=== PATIENT | female | born 1955 | race Caucasian/White ===

== ENCOUNTER 2018-10-24 12:25 | Emergency (ER) | payer OTHER ==
[~2018-10-24] VITALS: Ht 167.6 cm; Wt 108.9 kg
[2018-10-24 12:40] VITALS: BP 149/85
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
[2018-10-24] MEDS ORDERED: KETOROLAC 60 MG/2 ML VIAL IM ONE (13:10)
--- NOTE | 2018-10-24 13:50 | NUR ---
Dr. Antony evaluating patient at bedside.
[2018-10-24 14:20] VITALS: BP 148/75
== END 2018-10-24 14:16 | disposition home or self-care (01) ==
LOC: MED 12:25
DX: M25.562 Pain in left knee (principal); E11.9 Type 2 diabetes mellitus without complications; Z90.49 Acquired absence of other specified parts of digestive tract; Z98.890 Other specified postprocedural states
CPT/HCPCS: 96372; 99283; J1885